=== PATIENT | male | born 1965 | race Two or more races ===

== ENCOUNTER 2023-02-13 14:48 | Emergency (ER) | payer OTHER, MEDICAID ==
[~2023-02-13] VITALS: Ht 167.6 cm; Wt 82.9 kg
[2023-02-13 15:38] LABS: Basophils # (auto) 0 10 ^3/uL (0-0.2); Basophils % (auto) 0.7 % (0.0-2.0); Eosinophils # (auto) 0.1 10 ^3/uL (0-0.8); Eosinophils % (auto) 1.6 % (0.0-7.0); Hematocrit 39.3 % (41.0-53.0); Hemoglobin 13.1 g/dL (13.5-17.5); Lymphocytes # (auto) 1.4 10 ^3/uL (0.4-5.4); Lymphocytes % (auto) 23.8 % (10.0-50.0); Mean Corpuscular Hemoglobin 32.1 pg (28.0-32.0); Mean Corpuscular Hgb Conc. 33.3 g/dL (32.0-36.0); Mean Corpuscular Volume 96.4 fL (80.0-100.0); Monocytes # (auto) 0.7 10 ^3/uL (0-1.3); Monocytes % (auto) 11.8 % (0.0-12.0); Neutrophils # (auto) 3.8 10 ^3/uL (1.6-8.6); Neutrophils % (auto) 62.1 % (37.0-80.0); Nucleated Red Blood Cells % 0.1 %; Red Blood Cells 4.07 10^6/uL (4.5-5.90); Red Cell Distribution Width 13.2 % (11.8-14.3); White Blood Cell 6.1 10^3/uL (4.4-10.8)
[2023-02-13] MEDS ORDERED: AZITHROMYCIN 250 MG TAB PO ONE (15:45)
[2023-02-13 15:51] VITALS: BP 96/61; PULSE 100; RESP 17; TEMP 98.4; O2SAT 98
[2023-02-13 16:05] LABS: Albumin 3.8 g/dL (3.4-5.0); Calcium 9.3 mg/dL (8.5-10.1); Magnesium 3.3 mg/dL (1.6-2.6); Potassium 3.8 mmol/L (3.5-5.1)
[2023-02-13 16:08] LABS: BUN/Creatinine Ratio 4.7 (10.0-20.0); Bilirubin, Total 0.4 mg/dL (0.2-1.0); Total Protein 8.1 g/dL (6.4-8.2)
[2023-02-13] MEDS ORDERED: ACET500T58 PO (16:48)
[2023-02-13] MEDS ORDERED: AZIT-81 PO (16:48)
== END 2023-02-13 17:02 | disposition home or self-care (01) ==
LOC: ER 14:48
DX: J18.9 Pneumonia, unspecified organism (principal); M47.22 Other spondylosis with radiculopathy, cervical region; Z88.0 Allergy status to penicillin
CPT/HCPCS: 36415; 71046; 72040; 80053; 83735; 83880; 84484; 85025; 93005

== ENCOUNTER 2024-12-28 17:59 | Emergency (ER) | payer OTHER, MEDICAID ==
[~2024-12-28] VITALS: Ht 167.6 cm; Wt 97.5 kg
[~2024-12-28 17:59] MED LIST: ACET500T58 PO; AZIT-185 PO
[2024-12-28 18:14] VITALS: BP 128/75; PULSE 79; RESP 18; TEMP 98.5; O2SAT 97
--- NOTE | 2024-12-28 18:32 | ED.PDOC ---
SOB-HPI HPI Comments 59-year-old male presents to the ED chief complaint cough x2 weeks. She reports history of kidney failure stage IV currently on dialysis 2 days a week. Patient complaining of intermittent wet and dry cough x2 weeks. Reports no chest pain, difficulty breathing, shortness of breath, recent travel, weight gain fever or chills. Chief Complaint: Cough Time Seen by MD: 18:13 Primary Care Provider: EDITH Blum notes: Nurses Notes, Medications, Allergies Information Source: Patient Past Medical History PAST MEDICAL HISTORY: Denies Surgical History: Denies all surgeries Family History Family History: Reviewed,noncontributory to illness, No family hx of Cancer, No family hx of DM, No family hx of Heart rima, No family hx of HTN, No family hx ofKidney rima, No family hx of Liver rima, No family hx of Lung rima, No family hx of Stroke Social History Smoker: Non-Smoker Alcohol: Denies ETOH Use Drugs: Denies Drug Use Constitutional: denies: chills, diaphoresis, fatigue, fever, malaise, sweats, weakness, others EENTM: denies: blurred vision, double vision, ear bleeding, ear discharge, ear drainage, ear pain, ear ringing, eye pain, eye redness, hearing loss, mouth pain, mouth swelling, nasal discharge, nose bleeding, nose congestion, nose pain, photophobia, tearing, throat pain, throat swelling, voice changes, others Respiratory: reports: cough; denies: hemoptysis, orthopnea, SOB at rest, shortness of breath, SOB with excertion, stridor, wheezing, others Cardiovascular: denies: chest pain, dizzy spells, diaphoresis, Dyspnea on exertion, edema, irregular heart beat, left arm pain, lightheadedness, palpitations, PND, syncope, others Gastrointestinal: denies: abdomen distended, abdominal pain, blood streaked bowels, constipated, diarrhea, dysphagia, difficulty swallowing, hematemesis, melena, nausea, poor appetite, poor fluid intake, rectal bleeding, rectal pain, vomiting, others Genitourinary: denies: burning, dysuria, flank pain, frequency, hematuria, incontinence, penile discharge, penile sore, pain, testicle pain, testicle swelling, urgency, others Neurological: denies: dizziness, fainting, headache, left sided numbness, left sided weakness, numbness, paresthesia, pre-existing deficit, right sided numbness, right sided weakness, seizure, speech problems, tingling, tremors, weakness, others Musculoskeletal: denies: back pain, gout, joint pain, joint swelling, muscle pain, muscle stiffness, neck pain, others Integumetry: denies: bruises, change in color, change in hair/nails, dryness, laceration, lesions, lumps, rash, wounds, others Allergic/Immunocompromised: denies: Difficulty Healing, Frequent Infections, Hives, Itching, others Hematologic/Lymphatic: denies: anemia, blood clots, easy bleeding, easy bruising, swollen glands, others Endocrine: denies: excessive hunger, excessive sweating, excessive thirst, excessive urination, flushing, intolerance to cold, intolerance to heat, unexplained weight gain, unexplained weight loss, others Psychiatric: denies: anxiety, bipolar disorder, depression, hopeless, panic disorder, schizophrenia, sleepless, suicidal, others Physical Exam General Appearance: No Apparent Distress, Normal HEENT: Normal ENT Inspection, Pharynx Normal Neck: Full Range of Motion, Non-Tender Respiratory: Chest Non-Tender, Decreased Breath Sounds, No Respiratory Distress, Rhonchi Cardiovascular: No Edema, No JVD, No Murmur, No Gallop, Normal Peripheral Pulses, Regular Rate/Rhythm Breast Exam: Deferred Gastrointestinal: Non Tender, Soft Genitalia: Deferred Pelvic: Deferred Rectal: Deferred Extremities: No calf tenderness, Normal capillary refill, Normal inspection, Normal range of motion, Non-tender, No pedal edema Musculoskeletal : Apperance: Normal Neurologic: Alert, No Motor Deficits, Normal Affect, Normal Mood, No Sensory D eficits Cerebellar Function: Normal Reflexes: Normal Skin: Dry, Normal Color, Warm Lymphatic: No Adenopathy Was a procedure done? Was a procedure done?: No Differential Dx Differential Diagnosis: Bronchitis, Pneumonia, Allergic Rhinitis X-Ray, Labs, Meds, VS Vital Signs Date Time Temp Pulse Resp B/P (MAP) Pulse Ox O2 Delivery O2 Flow Rate FiO2 12/28/24 18:14 98.5 79 18 128/75 (92) 97 98.5 X-Ray, Labs, Meds, VS Comment Chest x-ray shows no acute cardiopulmonary findings. We will treat for bronchitis. Script trial of azithromycin and Advair. Advised to rest increase p.o. fluids with electrolytes advised to follow up with his PCP in 2-3 days. We discussed ER return precautions. Advised to take medications as prescribed side effects discussed. Patient indicates understanding and agrees with discharge plan of care. Time of 1ST Reevaluation: 18:32 Reevaluation 1ST: Unchanged Time of 2ND Reevaluation: 19:15 Reevaluation 2ND: Improved Patient Education/Counseling: Diagnosis, Treatment, Prognosis, Need For Follow Up Family Education/Counseling: No Family Present Departure 1 Departure Time of Disposition: 19:12 Impression: Primary Impression: Lower respiratory infection (e.g., bronchitis, pneumonia, pneumonitis, pulmonitis) Disposition: 01 HOME / SELF CARE / HOMELESS Condition: Stable e-Prescriptions Fluticasone-Salmeterol (Advair Diskus 250/50) 1 Puff Ih 1 PUFF INH BID for 14 Days, #1 INHALER Prov: ELVIA KAUFFMAN 12/28/24 Azithromycin (Azithromycin) 250 Mg Tab 250 MG PO DAILY MDD 500 for 5 Days, #6 TAB 0 Refills 2 TABLETS ORALLY ON DAY ONE, THEN 1 TABLET ORALLY DAILY FOR 4 DAYS Prov: ELVIA KAUFFMAN 12/28/24 Discharged With: Self Critical Care Note Critical Care Time?: No Stability Stability form required: No Heart Score Heart Score: Heart Score Response (Comments) Value History N/A 0 EKG N/A 0 Age 45-64 1 Risk Factors N/A 0 Troponin N/A 0 Total 1 ELVIA KAUFFMAN Dec 28, 2024 18:32
--- NOTE | 2024-12-28 18:58 | DVH ---
CHEST RADIOGRAPH Indication: cough, sob Technique: Frontal and lateral view of the chest was obtained Comparison: XY CHEST TWO VIEWS ROUTINE on DOS: 02/13/23 FINDINGS: Lines and Tubes: None Lungs: Clear Pleura: No effusion. No pneumothorax. Cardiomediastinal contours: Unremarkable Bones: Unremarkable IMPRESSION: 1. No evidence of acute disease.
[2024-12-28] MEDS ORDERED: AZIT-43 PO (19:15)
[2024-12-28] MEDS ORDERED: FLUT250M2 INH (19:15)
== END 2024-12-28 19:41 | disposition home or self-care (01) ==
LOC: ER 18:03
DX: J22 Unspecified acute lower respiratory infection (principal); N18.4 Chronic kidney disease, stage 4 (severe); Z99.2 Dependence on renal dialysis
CPT/HCPCS: 71046

== ENCOUNTER 2025-01-08 17:29 | Emergency (ER) | payer OTHER, MEDICAID ==
[~2025-01-08] VITALS: Ht 165.1 cm; Wt 91.0 kg
[~2025-01-08 17:29] MED LIST changes: +AZIT-43 PO; +FLUT250M2 INH
--- NOTE | 2025-01-08 17:43 | ED.PDOC ---
History of Present Illness HPI Comments 59 year old male with a history of CKF, HTN, and High lipids presents to the ED for the c/c of Bilateral Leg pain. Pt states that every time he Coughs, he experiences Bilateral leg pain that radiates down to his Calfs. Pt states his cough has been present for the past month, but his leg pain started 1x week ago. Pt also notes of Rare Alcohol and Marijuana use as well as a prior Hernia repair Surgery. No other symptoms or modifying factors reported at this time. Time Seen by MD: 17:39 Primary Care Provider: CATHY Reviewed Notes: Nurses Notes, Medications, Allergies Allergies: Coded Allergies: Penicillins (Verified Allergy, Unknown, 02/13/23) Home Meds Active Scripts Methylprednisolone (Medrol Dosepak) 4 Mg Cristo, 4 MG PO UD, #21 TAB UAD Prov:SAVANNAH BARAJAS MD 01/08/25 Fluticasone-Salmeterol (Advair Diskus 250/50) 1 Puff Ih, 1 PUFF INH BID for 14 Days, #1 INHALER Prov:ELVIA KAUFFMAN 12/28/24 Azithromycin (Azithromycin) 250 Mg Tab, 250 MG PO DAILY MDD 500 for 5 Days, #6 TAB 0 Refills 2 TABLETS ORALLY ON DAY ONE, THEN 1 TABLET ORALLY DAILY FOR 4 DAYS Prov:ELVIA KAUFFMAN 12/28/24 Acetaminophen (Acetaminophen) 500 Mg Tab, 500 MG PO Q4HP PRN, #30 TAB Prov:TOMÁS PIZARRO PAC 02/13/23 Azithromycin (ZITHROMAX TABLET) 250 Mg Tb, 250 MG PO DAILY for 4 Days, #4 TAB First dose to be taken on 02/14/2023 Prov:TOMÁS PIZARRO PAC 02/13/23 Information Source: Patient Mode of Arrival: Ambulatory Severity: Mild Timing: Weeks Duration: Since onset Prehospital treatment: None Past Medical History PAST MEDICAL HISTORY: CKF, High Lipids, HTN Surgical History: Hernia Repair Family History Family History: Reviewed,noncontributory to illness, No family hx of Cancer, No family hx of DM, No family hx of Heart rima, No family hx of HTN, No family hx ofKidney rima, No family hx of Liver rima, No family hx of Lung rima, No family hx of Stroke Social History Smoker: Non-Smoker Alcohol: Heavy Drugs: Marijuana Lives In: Home Constitutional: denies: chills, diaphoresis, fatigue, fever, malaise, sweats, weakness, others EENTM: denies: blurred vision, double vision, ear bleeding, ear discharge, ear drainage, ear pain, ear ringing, eye pain, eye redness, hearing loss, mouth pain, mouth swelling, nasal discharge, nose bleeding, nose congestion, nose pain, photophobia, tearing, throat pain, throat swelling, voice changes, others Respiratory: reports: cough Cardiovascular: denies: chest pain, dizzy spells, diaphoresis, Dyspnea on exertion, edema, irregular heart beat, left arm pain, lightheadedness, pa lpitations, PND, syncope, others Gastrointestinal: denies: abdomen distended, abdominal pain, blood streaked bowels, constipated, diarrhea, dysphagia, difficulty swallowing, hematemesis, melena, nausea, poor appetite, poor fluid intake, rectal bleeding, rectal pain, vomiting, others Genitourinary: denies: burning, dysuria, flank pain, frequency, hematuria, incontinence, penile discharge, penile sore, pain, testicle pain, testicle swelling, urgency, others Neurological: denies: dizziness, fainting, headache, left sided numbness, left sided weakness, numbness, paresthesia, pre-existing deficit, right sided numbness, right sided weakness, seizure, speech problems, tingling, tremors, weakness, others Musculoskeletal: denies: back pain, gout, joint pain, joint swelling, muscle pain, muscle stiffness, neck pain, others Integumetry: denies: bruises, change in color, change in hair/nails, dryness, laceration, lesions, lumps, rash, wounds, others Allergic/Immunocompromised: denies: Difficulty Healing, Frequent Infections, Hives, Itching, others Hematologic/Lymphatic: denies: anemia, blood clots, easy bleeding, easy br uising, swollen glands, others Endocrine: denies: excessive hunger, excessive sweating, excessive thirst, excessive urination, flushing, intolerance to cold, intolerance to heat, unexplained weight gain, unexplained weight loss, others Psychiatric: denies: anxiety, bipolar disorder, depression, hopeless, panic disorder, schizophrenia, sleepless, suicidal, others All Other Systems: Reviewed and Negative Physical Exam General Appearance: No Apparent Distress HEENT: Normal ENT Inspection, Pharynx Normal, TMs Normal Neck: Full Range of Motion, Non-Tender, Normal, Normal Inspection Respiratory: Chest Non-Tender, Lungs Clear, No Accessory Muscle Use, No Respiratory Distress, Normal Breath Sounds Cardiovascular: No Edema, No JVD, No Murmur, No Gallop, Normal Peripheral Pulses, Regular Rate/Rhythm Breast Exam: Deferred Gastrointestinal: No Organomegaly, Non Tender, No Pulsatile Mass, Normal Bowel Sounds, Soft Genitalia: Deferred Pelvic: Deferred Rectal: Deferred Extremities: No calf tenderness, Normal capillary refill, No pedal edema, Other (Dressing to the left upper extremity) Musculoskeletal : Apperance: Normal Neurologic: Alert, 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 Was a procedure done?: No Differential Dx Considerations may include: Generalized weakness, electrolyte imbalance, dehydration X-Ray, Labs, Meds, VS Vital Signs Date Time Temp Pulse Resp B/P (MAP) Pulse Ox O2 Delivery O2 Flow Rate FiO2 01/08/25 19:34 Room Air* 0 21 01/08/25 18:00 98.4 88 18 151/87 (108) 99 98.4 Lab Test 01/08/25 18:49 Range/Units White Blood Count 6.3 4.4-10.8 10^3/uL Red Blood Count 3.63 L 4.5-5.90 10^6/uL Hemoglobin 11.7 L 13.5-17.5 g/dL Hematocrit 34.4 L 41.0-53.0 % Mean Corpuscular Volume 94.7 80.0-100.0 fL Mean Corpuscular Hemoglobin 32.3 H 28.0-32.0 pg Mean Corpuscular Hemoglobin Concent 34.1 32.0-36.0 g/dL Red Cell Distribution Width 17.0 H 11.8-14.3 % Platelet Count 204 140-450 10^3/uL Mean Platelet Volume 7.6 6.9-10.8 fL Neutrophils (%) (Auto) 62.4 37.0-80.0 % Lymphocytes (%) (Auto) 22.3 10.0-50.0 % Monocytes (%) (Auto) 11.8 0.0-12.0 % Eosinophils (%) (Auto) 2.5 0.0-7.0 % Basophils (%) (Auto) 1.0 0.0-2.0 % Neutrophils # (Auto) 4.0 1.6-8.6 10 ^3/uL Lymphocytes # (Auto) 1.4 0.4-5.4 10 ^3/uL Monocytes # (Auto) 0.8 0-1.3 10 ^3/uL Eosinophils # (Auto) 0.2 0-0.8 10 ^3/uL Basophils # (Auto) 0.1 0-0.2 10 ^3/uL Nucleated Red Blood Cells 0.1 % Sodium Level 137 136-145 mmol/L Potassium Level 3.4 L 3.5-5.1 mmol/L Chloride Level 93 L 98-107 mmol/L Carbon Dioxide Level 35 H 20-31 mmol/L Anion Gap 9 5-15 Blood Urea Nitrogen 29 H 9-23 mg/dL Creatinine 7.83 H 0.700-1.30 mg/dL Glomerular Filtration Rate Calc 7 >90 mL/min BUN/Creatinine Ratio 3.7 L 10.0-20.0 Serum Glucose 74 74-106 mg/dL Calcium Level 9.5 8.7-10.4 mg/dL Current Medications Medications (Trade) Dose Ordered Sig/Sara Route Start Time Stop Time Status Last Admin Acetaminophen (Tylenol Tablet) 650 mg ONCE ONCE PO 01/08/25 17:45 01/08/25 17:46 DC 01/08/25 19:32 IMPRESSION: Findings consistent with viral and/or reactive airway disease. At this time, the patient is given a prescription of a Medrol Dosepak The patient is being discharged with acetaminophen The patient's CBC is within normal limits The chemistry panel shows a BUN of 29 and a creatinine of 7.83 The patient is being discharged Images Reviewed?: Images reviewed and evaluated by me Time of 1ST Reevaluation: 18:09 Reevaluation 1ST: Unchanged Patient Education/Counseling: Diagnosis, Treatment, Prognosis, Need For Follow Up Family Education/Counseling: No Family Present SEPSIS Sepsis Screen Physician Orders Chest Two Views Routine (01/08/25 17:38) Vital Signs Date Time Temp Pulse Resp B/P (MAP) Pulse Ox O2 Delivery O2 Flow Rate FiO2 01/08/25 19:34 Room Air* 0 21 01/08/25 18:00 98.4 88 18 151/87 (108) 99 98.4 Laboratory Tests Test 01/08/25 18:49 White Blood Count 6.3 10^3/uL (4.4-10.8) Medications Medications Dose Ordered Sig/Sara Route Start Time Stop Time Status Last Admin Dose Admin Acetaminophen 650 mg ONCE ONCE PO 01/08/25 17:45 01/08/25 17:46 DC 01/08/25 19:32 Departure 1 Departure Time of Disposition: 21:12 Impression: Primary Impression: Reactive airway disease Qualified Codes: J45.20 - Mild intermittent asthma, uncomplicated Additional Impression: ESRD on dialysis Disposition: HOME / SELF CARE / HOMELESS Condition: Fair e-Prescriptions Methylprednisolone (Medrol Dosepak) 4 Mg Cristo 4 MG PO UD, #21 TAB UAD Prov: SAVANNAH BARAJAS MD 01/08/25 Discharged With: Self Critical Care Note Critical Care Time?: No Stability Stability form required: No Heart Score Heart Score: Heart Score Response (Comments) Value History N/A 0 EKG N/A 0 Age N/A 0 Risk Factors N/A 0 Troponin N/A 0 Total 0 I personally scribed for SAVANNAH BARAJAS MD ([email or web address]) on 01/08/25 at 17:43. Electronically submitted by Jake Davis ([email or web address]). I personally scribed for SAVANNAH BARAJAS MD ([email or web address]) on 01/08/25 at 19:31. Electronically submitted by Jake Davis ([email or web address]). SAVANNAH BARAJAS MD Jan 08, 2025 17:43
--- NOTE | 2025-01-08 18:50 | DVH ---
CHEST RADIOGRAPH Indication: cough Technique: 2 views chest Comparison: XY CHEST TWO VIEWS ROUTINE on DOS: 12/28/24, XY CHEST TWO VIEWS ROUTINE on DOS: 02/13/23 FINDINGS: The cardiac silhouette is unremarkable. The lungs demonstrate peribronchial cuffing. There is no pleu ral effusion. There is no pneumothorax. There is moderate thoracic degenerative disc disease. IMPRESSION: Findings consistent with viral and/or reactive airway disease.
[2025-01-08 19:04] LABS: Basophils # (auto) 0.1 10 ^3/uL (0-0.2); Eosinophils # (auto) 0.2 10 ^3/uL (0-0.8); Eosinophils % (auto) 2.5 % (0.0-7.0); Hematocrit 34.4 % (41.0-53.0); Hemoglobin 11.7 g/dL (13.5-17.5); Lymphocytes # (auto) 1.4 10 ^3/uL (0.4-5.4); Lymphocytes % (auto) 22.3 % (10.0-50.0); Mean Corpuscular Hemoglobin 32.3 pg (28.0-32.0); Mean Corpuscular Hgb Conc. 34.1 g/dL (32.0-36.0); Mean Corpuscular Volume 94.7 fL (80.0-100.0); Monocytes # (auto) 0.8 10 ^3/uL (0-1.3); Monocytes % (auto) 11.8 % (0.0-12.0); Neutrophils % (auto) 62.4 % (37.0-80.0); Nucleated Red Blood Cells % 0.1 %; Platelet Count (auto) 204 10^3/uL (140-450); Red Blood Cells 3.63 10^6/uL (4.5-5.90); White Blood Cell 6.3 10^3/uL (4.4-10.8)
[2025-01-08 19:13] LABS: Sodium 137 mmol/L (136-145)
[2025-01-08 19:14] LABS: Anion Gap 9 (5-15); Calcium 9.5 mg/dL (8.7-10.4)
[2025-01-08 19:19] LABS: BUN/Creatinine Ratio 3.7 (10.0-20.0); Blood Urea Nitrogen 29 mg/dL (9-23); Carbon Dioxide 35 mmol/L (20-31); Chloride 93 mmol/L (98-107); Glucose 74 mg/dL (74-106); Potassium 3.4 mmol/L (3.5-5.1)
[2025-01-08] MEDS: ACETAMINOPHEN 325 MG TAB PO ONE (19:32)
[2025-01-08] MEDS ORDERED: METH4PAK PO (20:01)
[2025-01-08 21:51] VITALS: BP 138/82; PULSE 82; RESP 18; TEMP 97.8; O2SAT 97
== END 2025-01-08 21:32 | disposition home or self-care (01) ==
LOC: ER 17:29
DX: I12.0 Hypertensive chronic kidney disease with stage 5 chronic kidney disease or end stage renal disease (principal); N18.6 End stage renal disease; J45.909 Unspecified asthma, uncomplicated; F12.90 Cannabis use, unspecified, uncomplicated; E78.5 Hyperlipidemia, unspecified; F10.20 Alcohol dependence, uncomplicated; Z98.890 Other specified postprocedural states; Z99.2 Dependence on renal dialysis; Z88.0 Allergy status to penicillin; Z79.51 Long term (current) use of inhaled steroids; Z79.899 Other long term (current) drug therapy; Y90.9 Presence of alcohol in blood, level not specified
CPT/HCPCS: 36415; 71046; 80048; 85025

== ENCOUNTER 2025-04-14 06:07 | Emergency (ER) | payer OTHER, MEDICAID ==
[~2025-04-14] VITALS: Ht 177.8 cm; Wt 93.1 kg
[~2025-04-14 06:07] MED LIST changes: -FLUT250M2 INH; +METH4PAK PO
--- NOTE | 2025-04-14 06:24 | ED.PDOC ---
General HPI Comments HPI: Deonna 59 y.o male presents to the ED via EMS today with the chief complaint of urinary retention associated with penile pain. This morning, about 45 minutes prior to EMS arrival, he urinated, but he feels that his bladder did not empty completely and that there is still a blockage. The pain is localized to the tip of his penis. On EMS arrival, the patient was found to have a BG of 71, for which they administered oral glucose. The patient denies any hematuria, fever, chills, nausea, vomiting, or back and flank pain. He also reports a history of previous UTI but states that his current symptoms are different from those he experienced then. He has a significant past medical history of ESRD, on dialysis M, W,F and a known history of an enlarged prostate. His most recent dialysis session was yesterday, April 13, 2025. and reports he is still able to make urine. Initial Vitals BP: 144/77 HR: 78 RR: 20 O2:98% RA Temp: 98.7 F Past Medical History: ESRD on dialysis M, W, F. HTN, HLD, DM, UTI Past Surgical History: Hernia repair Social History: Denies ETOH, smoking, and drug use. Medications: Lasix Allergies: Penicillins HPI: Poor Historian. REVIEW OF SYSTEMS: CONSTITUTIONAL: Denies acute: fever, diaphoresis, chills, generalized weakness. HEAD: Denies acute: headache, photophobia Eyes: Denies acute: Double vision, vision loss, eye pain, eye discharge. EARS: Denies acute: tinnitus, hearing loss, ear discharge, ear pain, THROAT: Denies acute: sore throat, swelling, difficulty swallowing , pain with swallowing, change in voice. NECK: Denies acute: neck pain, neck swelling, stiff neck. HEART: Denies acute : chest pain, palpitations, LUNGS: Denies acute: SOB, wheezing, cough, hemoptysis ABDOMEN: Denies acute: abdominal pain, Nausea, Vomiting, diarrhea, melena , hematemesis, hematochezia SKIN: Denies acute: rash, redness, lesions, itchiness. EXTREMITIES: Denies acute: calf pain, numbness, tingling, weakness, denies pain in extremity. Denies acute: Low back pain. Neuro: Denies acute: focal neurological deficit, motor or sensory focal neurological deficit, tremors, seizure like activity, confusion, dizziness, change in mental status, loss of bowel or bladder function, cauda equina like symptoms. : Denies acute: dysuria, hematuria, flank pain, increase in urinary frequency. PSYCH: Denies acute: hallucination, suicidal ideation, homicidal ideation. PHYSICAL EXAM: General: ----no----acute distress, awake and alert. Head: normocephalic, atraumatic. Neck: supple, trachea is midline, no swelling. Throat: Normal phonation. Eyes:, no erythema, no purulent discharge, no proptosis, no icterus. Lazy eyes Heart: regular rate, regular rhythm, no significant murmur appreciated. Lungs: no apparent respiratory distress, Able to speak in full sentences. No wheezing, no rhonchi, no crackles. No stridors Clear to auscultation bilaterally. Abdomen: non tender to palpation, non distended, soft, no guarding, no rebound, + bowel sounds. Neuro: Awake, Alert, oriented to name, self, situation, follows commands GCS=15. Speech is normal. Skin: no petechia, no purpura, no cyanosis, non-pale, not jaundice. Lower extremities: --trace bilateral - Pitting edema no deformity, no focal swelling, no calf TTP. Makes eye contact. moves all four extremities. Face: no apparent facial droop. ED COURSE: DISCLAIMER: This medical document was created using an electronic medical record system with voice recognition software and computerized dictation system. Although this document has been carefully reviewed, there might still be some phonetic and typographical errors. Occasional wrong-word or "sound-alike" substitutions may have occurred due to the inherent limitations of voice recognition software. These areas are purely typographical due to imperfections of the software programs and do not reflect any compromise in the patient's medical care. Please read the chart carefully and recognize, using context, where these substitutions have occurred. Time Seen by MD: 06:16 Primary Care Provider: CATHY Reviewed notes: Allergies Allergies: Coded Allergies: Penicillins (Verified Allergy, Unknown, 02/13/23) Home Meds Active Scripts Methylprednisolone (Medrol Dosepak) 4 Mg Cristo, 4 MG PO UD, #21 TAB UAD Prov:SAVANNAH BARAJAS MD 01/08/25 Azithromycin (Azithromycin) 250 Mg Tab, 250 MG PO DAILY MDD 500 for 5 Days, #6 TAB 0 Refills 2 TABLETS ORALLY ON DAY ONE, THEN 1 TABLET ORALLY DAILY FOR 4 DAYS Prov:ELVIA KAUFFMAN SAND SIFTER 12/28/24 Acetaminophen (Acetaminophen) 500 Mg Tab, 500 MG PO Q4HP PRN, #30 TAB Prov:TOMÁS PIZARRO PAC 02/13/23 Azithromycin (ZITHROMAX TABLET) 250 Mg Tb, 250 MG PO DAILY for 4 Days, #4 TAB First dose to be taken on 02/14/2023 Prov:TOMÁS PIZARRO PAC 02/13/23 Information Source: Patient, Emergency Med Personnel Mode of Arrival: EMS Past Medical History PAST MEDICAL HISTORY: CKF, ESRD, High Lipids, HTN Surgical History: Hernia Repair Family History Family History: Reviewed,noncontributory to illness, No family hx of Cancer, No family hx of DM, No family hx of Heart rima, No family hx of HTN, No family hx ofKidney rima, No family hx of Liver rima, No family hx of Lung rima, No family hx of Stroke Social History Smoker: Non-Smoker Alcohol: Heavy Drugs: Marijuana Lives In: Home Was a procedure done? Was a procedure done?: No Differential Diagnosis Kidney stone (Female): N/A Penile/Scrotal: Prostatitis Urinary Problem (Male): Bladder Outlet, Bladder Obstruction, Epididymitis, Prostatitis, Urinary Retention, Urolithiasis, UTI X-Ray, Labs, Meds, VS Vital Signs Date Time Temp Pulse Resp B/P (MAP) Pulse Ox O2 Delivery O2 Flow Rate FiO2 04/14/25 06:10 98.7 78 20 144/77 98 98.7 Lab Test 04/14/25 08:13 04/14/25 06:40 Range/Units Urine Color Colorless Yellow Urine Clarity Clear Clear Urine pH 8.0 5.0-9.0 Urine Specific [place] 1.005 1.001-1.035 Urine Protein 2+ H Negative Urine Ketones Negative Negative Urine Blood 1+ H Negative /uL Urine Nitrite Negative Negative Urine Bilirubin Negative Negative Urine Urobilinogen Normal Negative mg/dL Urine Leukocyte Esterase Negative Negative /uL Urine RBC 1 0 - 3 /hpf Urine Microscopic WBC < 1 0-3 /HPF Urine Squamous Epithelial Cells None seen <5 /hpf Urine Bacteria None seen None Seen /hpf Urine Glucose 1+ H Normal mg/dL White Blood Count 5.7 4.4-10.8 10^3/uL Red Blood Count 3.15 L 4.5-5.90 10^6/uL Hemoglobin 9.9 L 13.5-17.5 g/dL Hematocrit 29.1 L 41.0-53.0 % Mean Corpuscular Volume 92.3 80.0-100.0 fL Mean Corpuscular Hemoglobin 31.6 28.0-32.0 pg Mean Corpuscular Hemoglobin Concent 34.2 32.0-36.0 g/dL Red Cell Distribution Width 15.0 H 11.8-14.3 % Platelet Count 153 140-450 10^3/uL Mean Platelet Volume 8.7 6.9-10.8 fL Neutrophils (%) (Auto) 64.1 37.0-80.0 % Lymphocytes (%) (Auto) 22.4 10.0-50.0 % Monocytes (%) (Auto) 10.6 0.0-12.0 % Eosinophils (%) (Auto) 2.3 0.0-7.0 % Basophils (%) (Auto) 0.6 0.0-2.0 % Neutrophils # (Auto) 3.6 1.6-8.6 10 ^3/uL Lymphocytes # (Auto) 1.3 0.4-5.4 10 ^3/uL Monocytes # (Auto) 0.6 0-1.3 10 ^3/uL Eosinophils # (Auto) 0.1 0-0.8 10 ^3/uL Basophils # (Auto) 0 0-0.2 10 ^3/uL Nucleated Red Blood Cells 0.0 % Sodium Level 134 L 136-145 mmol/L Potassium Level 4.0 3.5-5.1 mmol/L Chloride Level 92 L 98-107 mmol/L Carbon Dioxide Level 34 H 20-31 mmol/L Anion Gap 8 5-15 Blood Urea Nitrogen 25 H 9-23 mg/dL Creatinine 8.71 H 0.700-1.30 mg/dL Glomerular Filtration Rate Calc 6 >90 mL/min BUN/Creatinine Ratio 2.9 L 10.0-20.0 Serum Glucose 104 74-106 mg/dL Lactic Acid Level 0.6 0.4-2.0 mmol/L Calcium Level 9.5 8.7-10.4 mg/dL Total Bilirubin 0.4 0.2-1.0 mg/dL Aspartate Amino Transferase (AST) 17 13-40 U/L Alanine Aminotransferase (ALT) 14 7-40 U/L Alkaline Phosphatase 67 46-116 U/L Total Protein 6.7 5.7-8.2 g/dL Albumin 3.8 3.2-4.8 g/dL [address] [address] Ph: [phone] DIAGNOSTIC IMAGING Diagnostic Imaging Report : [id number] Signed PATIENT: YISEL VILLALTA III ACCT: [id number] UNIT: [id number] : 1965 LOC: ER ROOM / BED: / AGE / SEX: 59 / M ADM STATUS: REG ER SERVICE [id number] ORDERING PHYSICIAN: SHANNAN HOROWITZ DO PROCEDURE(s): ABPL - CT AB PEL WO CON-NO ORAL OR IV REASON: enlarged prostate, poss urinary retention ORDER NUMBER(s): [id number], ACCESSION NUMBER(s): [id number] CT abdomen and pelvis without contrast INDICATION: enlarged prostate, poss urinary retention TECHNIQUE: Serial axial images were performed through the abdomen and pelvis and then reformatted in the sagittal and coronal plane. All CT scans at this medical facility are performed using dose modulation techniques as appropriate to a performed exam including the following: Automated exposure control was utilized; adjustment of the MA and/or KvP according to patient size; and use of iterative reconstruction technique. FINDINGS: Liver and spleen are normal in size without focal mass. Bilateral renal atrophy. No stones or hydronephrosis. The adrenal glands and pancreas are poorly visualized due to surrounding unopacified bowel loops No biliary dilatation. No gallstones. No distention of bowel loops to suggest mechanical obstruction of bowel. The appendix is normal in appearance. No free fluid. Within the pelvis, bladder is incompletely distended and shows slight wall thickening. Prostate gland is enlarged. No abnormal masses or fluid collections. IMPRESSION: 1. Study severely limited by lack of contrast. Bowel and retroperitoneal structures poorly visualized. 2. There is an enlarged prostate gland and there is slight bladder wall thickening either due to incomplete distention or possibly inflammation. Computed Tomographic Radiation Dosimetry Report: Total CTDI vol = 12.0mGy Total DLP = 3.92mGy-cm Low dose protocols were performed. ATED BY: FAITH RUIZ MD DICTATED DATE/TIME: 04/14/25807 SIGNED BY: FAITH RUIZ MD SIGNED DATE/TIME: 04/14/25807 CC: Time of 1ST Reevaluation: 06:34 Reevaluation 1ST: Unchanged Patient Education/Counseling: Diagnosis, Treatment Family Education/Counseling: No Family Present Comments MDM: patient presented with the above HPI.--urinary symptoms----workup was initiated. patient was found with the above mentioned diagnosis. Patient came specifically concerned for urinary retention. Denies any other acute symptoms the following medications were ordered: please refer to order lists of meds and tests obtained by myself Dr. Horowitz. Patient ED course and VS have been stabilized. Patient has been reassessed in the ED and remained in a stable condition. Pertinent incidental findings were discussed with the patient and/or family. Patient/family voices understanding and is agreeable with plan. Patient has been observed in the ED adequate length of time to insure improvement/stability. Escalation of care considered: Consideration of escalation to observation or admission CT scan findings does not suggest urinary retention. Patient has known history of enlarged prostate. Patient follows up with dialysis most recently yesterday. Patient was DISCHARGED home in a stable condition. All the reports of any imaging studies that were ordered by myself were reviewed by myself. Departure 1 Departure Time of Disposition: 08:39 Impression: Primary Impression: Urinary symptom or sign Additional Impression: Enlarged prostate Disposition: 01 HOME / SELF CARE / HOMELESS Condition: Stable Additional Instructions: Additional instructions: Please read all instructions provided in this packet carefully. You MUST follow-up with your primary care/family doctor in 1 to 2 days. If you are unable to see your primary care/family doctor, please return to our emergency room for re-assessment and re-evaluation in 1 to 2 days. Return to the emergency room here in our facility or to the nearest ER [facility] if your symptoms change or worsen. CONSULTATIONS: you MUST Follow-up for consultation as soon as possible with: -urology in 1-2 days. Please call for appointment You MUST call the consultants office yourself to make an appointment. You may need to arrange that through your insurance and/or your primary/family doctor. If you are unable to see the staff consultant in 1 to 2 days, you must return to our emergency room (or any other ER of your choice) for re-assessment and re- evaluation. Adequate fluid hydration. Although you have been discharged from the Emergency Department, this does not mean that you have a "clean bill of health". No definitive diagnosis for your symptoms has been made today. It is possible that you are in the process of developing a serious illness. This is why you must return to the ED without fail if any new or worsening symptoms develop. Below is a copy of your radiological report for follow up: [address] [address] Ph: [phone] DIAGNOSTIC IMAGING Diagnostic Imaging Report : [id number] Signed PATIENT: YISEL VILLALTA III ACCT: [id number] UNIT: [id number] : 1965 LOC: ER ROOM / BED: / AGE / SEX: 59 / M ADM STATUS: REG ER SERVICE ORDERING PHYSICIAN: SHANNAN HOROWITZ DO PROCEDURE(s): ABPL - CT AB PEL WO CON-NO ORAL OR IV REASON: enlarged prostate, poss urinary retention ORDER NUMBER(s): [id number], ACCESSION NUMBER(s): [id number] CT abdomen and pelvis without contrast INDICATION: enlarged prostate, poss urinary retention TECHNIQUE: Serial axial images were performed through the abdomen and pelvis and then reformatted in the sagittal and coronal plane. All CT scans at this medical facility are performed using dose modulation techniques as appropriate to a performed exam including the following: Automated exposure control was utilized; adjustment of the MA and/or KvP according to patient size; and use of iterative reconstruction technique. FINDINGS: Liver and spleen are normal in size without focal mass. Bilateral renal atrophy. No stones or hydronephrosis. The adrenal glands and pancreas are poorly visualized due to surrounding unopacified bowel loops No biliary dilatation. No gallstones. No distention of bowel loops to suggest mechanical obstruction of bowel. The appendix is normal in appearance. No free fluid. Within the pelvis, bladder is incompletely distended and shows slight wall thickening. Prostate gland is enlarged. No abnormal masses or fluid collections. IMPRESSION: 1. Study severely limited by lack of contrast. Bowel and retroperitoneal structures poorly visualized. 2. There is an enlarged prostate gland and there is slight bladder wall thickening either due to incomplete distention or possibly inflammation. Computed Tomographic Radiation Dosimetry Report: Total CTDI vol = 12.0mGy Total DLP = 3.92mGy-cm Low dose protocols were performed. ATED BY: FAITH RUIZ MD DICTATED DATE/TIME: 04/14/25807 SIGNED BY: FAITH RUIZ MD SIGNED DATE/TIME: 04/14/25807 CC: Discharged With: Self Critical Care Note Critical Care Time?: No I personally scribed for SHANNAN HOROWITZ DO ([email or web address]) on 04/14/25 at 06:24. Electronically submitted by Cristy Ruano ([facility]). I personally scribed for SHANNAN HOROWITZ DO ([email or web address]) on 04/14/25 at 06:39. Electronically submitted by Cristy Ruano ([facility]). I personally scribed for SHANNAN HOROWITZ DO ([email or web address]) on 04/14/25 at 06:46. Electronically submitted by Cristy Ruano ([facility]). I personally scribed for SHANNAN HOROWITZ DO ([email or web address]) on 04/14/25 at 08:39. Electronically submitted by Cristy Ruano ([facility]). SHANNAN HOROWITZ DO Apr 14, 2025 06:24
[2025-04-14 07:15] LABS: Hematocrit 29.1 % (41.0-53.0); Hemoglobin 9.9 g/dL (13.5-17.5); Mean Corpuscular Hemoglobin 31.6 pg (28.0-32.0); Mean Corpuscular Volume 92.3 fL (80.0-100.0); Nucleated Red Blood Cells % 0.0 %
[2025-04-14 07:27] LABS: Alanine Aminotransferase 14 U/L (7-40); Albumin 3.8 g/dL (3.2-4.8); Alkaline Phosphatase 67 U/L (46-116); Anion Gap 8 (5-15); BUN/Creatinine Ratio 2.9 (10.0-20.0); Calcium 9.5 mg/dL (8.7-10.4); Glucose 104 mg/dL (74-106); Potassium 4.0 mmol/L (3.5-5.1); Total Protein 6.7 g/dL (5.7-8.2)
[2025-04-14 07:28] LABS: Bilirubin, Total 0.4 mg/dL (0.2-1.0); Blood Urea Nitrogen 25 mg/dL (9-23); Carbon Dioxide 34 mmol/L (20-31); Chloride 92 mmol/L (98-107); Sodium 134 mmol/L (136-145)
--- NOTE | 2025-04-14 08:11 | DVH ---
CT abdomen and pelvis without contrast INDICATION: enlarged prostate, poss urinary retention TECHNIQUE: Serial axial images were performed through the abdomen and pelvis and then reformatted in the sagittal and coronal plane. All CT scans at this medical facility are performed using dose modula tion techniques as appropriate to a performed exam including the following: Automated exposure contro l was utilized; adjustment of the MA and/or KvP according to patient size; and use of iterative recon struction technique. FINDINGS: Liver and spleen are normal in size without focal mass. Bilateral renal atrophy. No stones or hydronephrosis. The adrenal glands and pancreas are poorly visualized due to surrounding unopacifi ed bowel loops No biliary dilatation. No gallstones. No distention of bowel loops to suggest mold mechanic al obstruction of bowel. The appendix is normal in appearance. No free fluid. Within the pelvis, blad harriett is incompletely distended and shows slight wall thickening. Prostate gland is enlarged. No abnor mal masses or fluid collections. IMPRESSION: 1. Study severely limited by lack of contrast. Bowel and retroperitoneal structures poorly visualized . 2. There is an enlarged prostate gland and there is slight bladder wall thickening either due to inco mplete distention or possibly inflammation. Computed Tomographic Radiation Dosimetry Report: Total CTDI vol = 12.0mGy Total DLP = 3.92mGy-cm Low dose protocols were performed.
[2025-04-14 08:29] LABS: Urine Protein, UAD 2+ (Negative)
[2025-04-14 09:04] VITALS: BP 148/90; PULSE 79; RESP 16; TEMP 98.1
[2025-04-14 09:11] VITALS: O2SAT 100
== END 2025-04-14 09:11 | disposition home or self-care (01) ==
LOC: EDBD 06:07 → ER 06:07
DX: N32.89 Other specified disorders of bladder (principal); N48.89 Other specified disorders of penis; I12.0 Hypertensive chronic kidney disease with stage 5 chronic kidney disease or end stage renal disease; E11.22 Type 2 diabetes mellitus with diabetic chronic kidney disease; N18.6 End stage renal disease; Z99.2 Dependence on renal dialysis; Z98.890 Other specified postprocedural states; Z88.0 Allergy status to penicillin
CPT/HCPCS: 36415; 74176; 80053; 81001; 82947; 83605; 85025